=== PATIENT | male | born 2000 | race Caucasian/White ===

== ENCOUNTER 2020-01-20 03:52 | Emergency (ER) | payer MEDICAID ==
[~2020-01-20] VITALS: Ht 180.3 cm; Wt 69.4 kg
[2020-01-20 03:58] VITALS: BP 128/75
--- NOTE | 2020-01-20 04:18 | NUR ---
Discussed w/ patient regarding polysubstance abuse; admits to injecting meth and cocaine. Pt admits to smoking heroin and marijuana.
[2020-01-20] MEDS ORDERED: LORazepam 1MG TABLET ONE (04:26)
[2020-01-20] MEDS ORDERED: LORazepam 1MG TABLET PO ONE (04:30)
== END 2020-01-20 04:54 | disposition home or self-care (01) ==
LOC: ED 04:39
DX: L73.9 Follicular disorder, unspecified (principal); F15.10 Other stimulant abuse, uncomplicated; F41.9 Anxiety disorder, unspecified; F17.290 Nicotine dependence, other tobacco product, uncomplicated
CPT/HCPCS: 99283; 99406

== ENCOUNTER 2020-02-26 03:36 | Inpatient (IN) | payer MEDICAID ==
[~2020-02-26] VITALS: Ht 177.8 cm; Wt 67.2 kg
[2020-02-26] MEDS ORDERED: LORazepam 2 MG/ML, 1ML IM ONE (04:00)
[2020-02-26] MEDS ORDERED: LORazepam 2 MG/ML, 1ML ONE (04:06)
[2020-02-26] MEDS ORDERED: MORPHINE SULFATE 4 MG/ML, 1ML IVPush ONE (05:00)
[2020-02-26] MEDS ORDERED: CLINDAMYCIN PMX 600MG/50ML 50 ML IV ONE (05:00)
[2020-02-26] MEDS ORDERED: ONDANSETRON 2MG/ML, 2ML IVPush ONE (05:00)
[2020-02-26] MEDS ORDERED: MORPHINE SULFATE 4 MG/ML, 1ML ONE (05:17)
[2020-02-26] MEDS ORDERED: ONDANSETRON 2MG/ML, 2ML ONE (05:17)
[2020-02-26] MEDS ORDERED: CLINDAMYCIN PMX 600MG/50ML 50 ML ONE (05:17)
[2020-02-26 05:29] LABS: ALBUMIN 3.7 g/dL (3.4-5.0); ANION GAP 8 mmol/L (5-15); BASOPHILS # (AUTO) 0.03 x10^3/uL (0-0.1); BASOPHILS % (AUTO) 0 % (0-1); CALCIUM 8.6 mg/dL (8.5-10.1); CHLORIDE 110 mmol/L (98-107); EOSINOPHILS # (AUTO) 0.12 x10^3/uL (0-0.4); EOSINOPHILS % (AUTO) 2 % (1-7); LYMPHOCYTES # (AUTO) 2.14 x10^3/uL (1-3.4); LYMPHOCYTES % (AUTO) 29 % (22-44); MD NO; MEAN CORPUSCULAR HEMOGLOBIN 30.9 pg (27.5-34.5); MEAN CORPUSCULAR HGB CONC 33.9 g/dL (33.2-36.2); MEAN CORPUSCULAR VOLUME 91.3 fL (81-97); MEAN PLATELET VOLUME 8.2 fL (7.4-10.4); MONOCYTES # (AUTO) 0.53 x10^3/uL (0.2-0.8); MONOCYTES % (AUTO) 7 % (2-9); NEUTROPHILS % (AUTO) 62 % (42-75); PLATELET COUNT 365 x10^3/uL (130-400); RED BLOOD COUNT 4.42 x10^6/uL (4.38-5.82); RED CELL DISTRIBUTION WIDTH 12.7 % (9.4-14.8)
[2020-02-26 05:30] LABS: CREATININE 0.81 mg/dL (0.7-1.3)
[2020-02-26] MEDS ORDERED: ONDANSETRON 2MG/ML, 2ML IVPush PRN (05:30)
[2020-02-26] MEDS ORDERED: D5%-0.45% NACL 1,000 ML IV SCH (05:30)
[2020-02-26] MEDS ORDERED: hydrALAzine 20 MG/ML, 1ML IVPush PRN (05:30)
[2020-02-26] MEDS ORDERED: ACETAMINOPHEN 325 MG TABLET PO PRN (05:30)
[2020-02-26] MEDS ORDERED: KETOROLAC 30 MG/1 ML IV PRN (05:30)
[2020-02-26] MEDS ORDERED: LORazepam 2 MG/ML, 1ML IVPush PRN (05:30)
[2020-02-26 05:44] LABS: INTERNATIONAL NORMALIZED RATIO 0.99 (0.93-1.1); PROTHROMBIN TIME 10.2 Seconds (9.6-11.5)
[2020-02-26 05:48] VITALS: BP 136/89
[2020-02-26] MEDS ORDERED: AMPICILLIN/SULBACTAM 3 GM in SODIUM CHLORIDE 0.9% 100 ML IV SCH (06:00)
[2020-02-26 06:55] VITALS: BP 149/79
== END 2020-02-26 10:45 | disposition left against medical advice (07) | DRG 115 ==
LOC: ED 05:31 → 4NE 05:37 → ED 05:51
PROVIDERS: ADMIT Hospitalist; ATTEND Internal Medicine
DX: S02.651B Fracture of angle of right mandible, initial encounter for open fracture (principal); F15.10 Other stimulant abuse, uncomplicated; Z53.29 Procedure and treatment not carried out because of patient's decision for other reasons; F10.10 Alcohol abuse, uncomplicated; F12.10 Cannabis abuse, uncomplicated; F17.210 Nicotine dependence, cigarettes, uncomplicated; F43.10 Post-traumatic stress disorder, unspecified; Y04.0XXA Assault by unarmed brawl or fight, initial encounter; F31.9 Bipolar disorder, unspecified; F19.10 Other psychoactive substance abuse, uncomplicated; G89.11 Acute pain due to trauma; Z59.0 Homelessness; Z91.14 Patient's other noncompliance with medication regimen; Y93.89 Activity, other specified; Y92.89 Other specified places as the place of occurrence of the external cause; Y99.8 Other external cause status; Z56.0 Unemployment, unspecified; Z79.899 Other long term (current) drug therapy; Y90.9 Presence of alcohol in blood, level not specified; S02.66XB Fracture of symphysis of mandible, initial encounter for open fracture
CPT/HCPCS: 36415; 70486; 80048; 82040; 85025; 85610; 96374; 96375; 99285; G0378; J0295; J2405; J2060; J2270

== ENCOUNTER 2020-02-27 22:21 | Emergency (ER) | payer MEDICAID ==
[~2020-02-27] VITALS: Ht 177.8 cm; Wt 67.2 kg
[2020-02-27 22:45] VITALS: BP 160/84
== END 2020-02-28 01:51 | disposition left against medical advice (07) ==
LOC: ED 02-28 01:30
DX: S02.609B Fracture of mandible, unspecified, initial encounter for open fracture (principal); F15.10 Other stimulant abuse, uncomplicated; F17.210 Nicotine dependence, cigarettes, uncomplicated; Y08.89XA Assault by other specified means, initial encounter; Y93.89 Activity, other specified; Y92.89 Other specified places as the place of occurrence of the external cause; Y99.8 Other external cause status
CPT/HCPCS: 99281; 99406

== ENCOUNTER 2020-03-01 02:39 | Emergency (ER) | payer MEDICAID ==
[~2020-03-01] VITALS: Ht 177.8 cm; Wt 68.3 kg
--- NOTE | 2020-03-01 02:55 | NUR ---
TALENT ACQUISITION DIRECTOR: KNIFE PLACED INTO SAFEKEEPING WITH SECURITY.
--- NOTE | 2020-03-01 03:14 | NUR ---
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 WILL HOLD IV AT THIS TIME, ROOM DARKENED, WARM BLANKETS GIVEN, CALL GONZALES IN REACH, MONITORING EQUIP ATTATCHED. PT AWARE OF THE IMPORTANCE TO PLEASE STAY NPO AND TO PLEASE NOT DO ANY DRUGS IN THE ROOM. AGREEABLE AT THIS TIME.
--- NOTE | 2020-03-01 05:05 | NUR ---
SLEEPING QUIETLY AT THIS TIME.
--- NOTE | 2020-03-01 05:31 | NUR ---
PLAN IS TO CALL DR CASE DURING BUSINESS HOURS LONG PT STAYS. SLEEPING QUIETLY AT THIS TIME, CONTINUE TO MONITOR
[2020-03-01 06:36] VITALS: BP 101/50
--- NOTE | 2020-03-01 09:26 | NUR ---
Patient given discharge instructions and they have confirmed that they understand the instructions. Patient ambulatory with steady gait.
== END 2020-03-01 09:27 | disposition home or self-care (01) ==
LOC: ED 03:07
DX: S02.609A Fracture of mandible, unspecified, initial encounter for closed fracture (principal); F10.10 Alcohol abuse, uncomplicated; F15.10 Other stimulant abuse, uncomplicated; F12.10 Cannabis abuse, uncomplicated; F17.200 Nicotine dependence, unspecified, uncomplicated; Y90.0 Blood alcohol level of less than 20 mg/100 ml; X58.XXXA Exposure to other specified factors, initial encounter; Y93.89 Activity, other specified; Y92.488 Other paved roadways as the place of occurrence of the external cause; Y99.8 Other external cause status
CPT/HCPCS: 99281

== ENCOUNTER 2020-03-05 11:50 | Emergency (ER) | payer MEDICAID ==
[~2020-03-05] VITALS: Ht 182.9 cm; Wt 64.6 kg
--- NOTE | 2020-03-05 11:56 | NUR ---
NIL X1
--- NOTE | 2020-03-05 12:30 | NUR ---
PT TO ER FOR RT JAW PAIN, HX OF SAME. PT SEEN MULTIPLE TIMES FOR SAME. PT ADMITS TO IV DRUG USE. ERMD AT BEDSIDE FOR ASSESSMENT. PT PROTECTING OWN AIRWAY WELL, ABLE TO SWALLOW OWN SECRETIONS WELL. WILL FOLLOW ORDERS.
--- NOTE | 2020-03-05 13:35 | NUR ---
PT TO BE D/C PER ERMD AND MAXILOFACIAL MD. PT DOES NOT NEED SURGERY. PT AWARE OF POC. PT OK FOR D/C PER ERMD.
[2020-03-05 13:40] VITALS: BP 103/76
== END 2020-03-05 13:42 | disposition home or self-care (01) ==
LOC: ED 12:45
DX: S02.651A Fracture of angle of right mandible, initial encounter for closed fracture (principal); S02.601A Fracture of unspecified part of body of right mandible, initial encounter for closed fracture; S02.652A Fracture of angle of left mandible, initial encounter for closed fracture; Y08.89XA Assault by other specified means, initial encounter; Y93.89 Activity, other specified; Y92.89 Other specified places as the place of occurrence of the external cause; Y99.8 Other external cause status
CPT/HCPCS: 70486; 99284

== ENCOUNTER 2020-03-11 16:02 | Emergency (ER) | payer MEDICAID ==
[~2020-03-11] VITALS: Ht 170.2 cm; Wt 65.0 kg
[2020-03-11 16:09] VITALS: BP 139/81
--- NOTE | 2020-03-11 16:14 | NUR ---
PT IN ROOM WITH SUPPLIES SECURED BEHIND PULL DOWN DOORS, IN DIRECT VIEW OF SITTER.
--- NOTE | 2020-03-11 16:28 | NUR ---
JUWAN RAE AT BEDSIDE INTERVIEWING PT. PER JUWAN PT TOLD HIM THAT HE IS OUT OF METH AND NEEDS A PLACE TO STAY. FURTHER STATED HE WANTED TO BE ADMITTED TO [facility]. PT BECAME AGITATED AND LEFT ER. PT LEFT HIS BELONGINGS AND TO BE GIVEN TO SECURITY
== END 2020-03-11 16:50 | disposition left against medical advice (07) ==
LOC: ED 16:43
DX: F15.20 Other stimulant dependence, uncomplicated (principal); R45.851 Suicidal ideations; Z72.9 Problem related to lifestyle, unspecified; Z76.5 Malingerer [conscious simulation]; F14.20 Cocaine dependence, uncomplicated
CPT/HCPCS: 99283